=== PATIENT | female | born 1945 | race Caucasian/White ===

== ENCOUNTER → 2022-09-26 | Day surgery (SDC) | payer OTHER | END | disposition home or self-care (01) | LOC: JRADUS-SUR 08:14 | PROVIDERS: ATTEND Internal Medicine Geriatric Medicine | PROC: 07D53ZX Extraction of Right Axillary Lymphatic, Percutaneous Approach, Diagnostic (ICD-10-PCS; principal; 2022-09-26) | DX: C91.10 Chronic lymphocytic leukemia of B-cell type not having achieved remission (principal) | CPT/HCPCS: 19083; 87899; 88305-TC; 88342-TC; A4648 ==

== ENCOUNTER → 2023-11-13 | Day surgery (SDC) | payer OTHER | END | disposition home or self-care (01) | LOC: JRADUS-SUR 11:36 | PROVIDERS: ATTEND Internal Medicine Geriatric Medicine | PROC: 07B63ZX Excision of Left Axillary Lymphatic, Percutaneous Approach, Diagnostic (ICD-10-PCS; principal; 2023-11-13) | PROC: BH41ZZZ Ultrasonography of Left Breast (ICD-10-PCS; 2023-11-13) | DX: C91.10 Chronic lymphocytic leukemia of B-cell type not having achieved remission (principal); R59.0 Localized enlarged lymph nodes | CPT/HCPCS: 19083; 76942-TC; 87899; 88305-TC; A4648 ==